=== PATIENT | female | born 1935 | race Caucasian/White ===

== ENCOUNTER 2017-09-21 03:59 | Emergency (ER) | payer OTHER ==
[~2017-09-21] VITALS: Ht 152.4 cm; Wt 56.7 kg
[2017-09-21 05:29] LABS: EOSINOPHIL (%) 2.3 % (0-5); EOSINOPHIL COUNT 0.3 K/uL (0-0.3); HEMATOCRIT 36.3 % (36.0-46.0); IMMATURE GRANULOCYTE (%) 0.2 % (0.0-0.7); INSTRUMENT ABS NEUTROPHIL CT 5.2 K/uL; LYMPHOCYTE COUNT 4.4 K/uL (1.0-2.8); MCH 33.3 PG (29.0-34.0); MCHC 33.1 G/DL (30.0-36.0); MCV 100.8 FL (83-99); MEAN PLAT.VOLUME 10.6 uM^3 (9.5-12.4); MONOCYTE (%) 7.2 % (3-12); MONOCYTE COUNT 0.8 K/uL (0-0.8); NEUTROPHIL (%) 48.6 % (45-76); NEUTROPHIL COUNT 5.2 K/uL (1.8-6.4); PLATELET COUNT 238 K/uL (156-360); RBC DIS.WIDTH-CV 12.1 % (11.8-14.6); RBC DIS.WIDTH-SD 45.1 % (39-53); WHITE BLOOD COUNT 10.7 K/uL (4.1-10.2)
[2017-09-21 05:35] LABS: INTER. NORMALIZED RATIO 0.9; PROTHROMBIN TIME 10.5 SEC (10.2-12.9)
[2017-09-21 05:37] LABS: PTT 29.2 SEC (25-37)
[2017-09-21 05:39] LABS: CHLORIDE 106 mEq/L (99-109); POTASSIUM 4.3 mEq/L (3.7-5.4); SODIUM 141 mEq/L (136-147)
[2017-09-21 05:40] LABS: GLUCOSE 154 mg/dL (70-99)
[2017-09-21 05:42] LABS: ANION GAP 8 MEQ/L (2-14)
[2017-09-21 05:44] LABS: GFR ESTIMATE (CALCULATED) 50 mL/min/
[2017-09-21 05:45] LABS: UREA NITROGEN (BUN) 17 mg/dL (9-23)
[2017-09-21] MEDS ORDERED: LIDOCAINE700 MG TP (06:57)
[2017-09-21] MEDS ORDERED: TYLENOL WITH C1 EACH PO (06:57)
[2017-09-21 07:15] VITALS: BP 186/74
== END 2017-09-21 07:16 | disposition home or self-care (01) ==
LOC: EME 03:59
PROVIDERS: Emergency Medicine
DX: S09.8XXA Other specified injuries of head, initial encounter (principal); S00.03XA Contusion of scalp, initial encounter; S20.212A Contusion of left front wall of thorax, initial encounter; W18.39XA Other fall on same level, initial encounter; Z79.82 Long term (current) use of aspirin
CPT/HCPCS: 70450; 71020; 80048; 85025; 85610; 85730; 99281; 99284